=== PATIENT | male | born 1975 | race Caucasian/White ===

== ENCOUNTER 2018-09-22 09:23 | Emergency (ER) | payer MEDICAID ==
[~2018-09-22] VITALS: Ht 175.3 cm; Wt 97.1 kg
[2018-09-22 09:36] VITALS: BP 152/95
== END 2018-09-22 10:16 | disposition home or self-care (01) ==
LOC: ER 09:23
DX: L03.115 Cellulitis of right lower limb (principal); E11.9 Type 2 diabetes mellitus without complications; I10 Essential (primary) hypertension
CPT/HCPCS: 99282; 99283

== ENCOUNTER 2018-11-19 08:37 | Inpatient (IN) | payer MEDICAID ==
[~2018-11-19] VITALS: Ht 175.3 cm; Wt 95.3 kg
[2018-11-19] MEDS ORDERED: KETOROLAC 30MG/ML VIAL IV STA (10:13)
[2018-11-19] MEDS ORDERED: PIPERACILLIN/TAZ 3.375G PREMIX 50 ML IV ONE (10:15)
[2018-11-19] MEDS ORDERED: VANCOMYCIN 1 G PREMIX 200 ML IV ONE ×2 (10:15→14:00)
[2018-11-19] MEDS ORDERED: SODIUM CHLORIDE 0.9% 1000ML BAG (SEPSIS BOLUS) IV ONE (10:15)
[2018-11-19 10:46] LABS: BASOPHILS % 1.2 % (0.0-2.0); EOSINOPHILS % 1.1 % (0.0-5.0); HEMATOCRIT. 40.8 % (42.0-52.0); LYMPHOCYTES % 24.9 % (20.0-50.0); MEAN CORPUSCULAR VOLUME 87.4 fL (80.0-94.0); MEAN PLATELET VOLUME 8.8 fl (7.4-10.4); MONOCYTES % 9.9 % (2.0-8.0); NEUTROPHILS % 62.9 % (40.0-76.0); PLATELET 268 x1000/uL (130-400); RED BLOOD CELL COUNT 4.67 mill/uL (4.7-6.1); RED CELL DISTRIBUTION WIDTH 12.5 % (11.6-14.6)
[2018-11-19 10:48] LABS: CHLORIDE 101 mEq/L (98-107)
[2018-11-19 10:50] LABS: INR 1.1; PROTHROMBIN TIME 10.7 sec (9.1-11.1)
[2018-11-19 12:04] LABS: CLARITY URINE CLEAR (CLEAR); COLOR URINE YELLOW (YELLOW); KETONES URINE NEGATIVE (NEGATIVE); LEUKOCYTE ESTERASE URINE NEGATIVE (NEGATIVE); NITRITE URINE NEGATIVE (NEGATIVE); OCCULT BLOOD URINE NEGATIVE (NEGATIVE); PH URINE 5.5 (4.5-8.0); PROTEIN URINE 1+ (NEGATIVE); SPECIFIC GRAVITY URINE 1.025 (1.005-1.030); UROBILINOGEN URINE 0.2 E.U./dL (0.2-1.0)
[2018-11-19 12:54] LABS: *AMPHETAMINES SCREEN URINE PRESUMTIVE POSITIVE (NEGATIVE); *BARBITURATES SCREEN URINE NEGATIVE (NEGATIVE)
[2018-11-19 12:55] LABS: *BENZODIAZEPINES SCREEN URINE NEGATIVE (NEGATIVE); CANNABINOID URINE SCREEN NEGATIVE (NEGATIVE); METHADONE URINE SCREEN NEGATIVE (NEGATIVE); OPIATES URINE SCREEN NEGATIVE (NEGATIVE); PHENCYCLIDINE URINE SCREEN NEGATIVE (NEGATIVE)
[2018-11-19 12:57] LABS: *COCAINE SCREEN URINE NEGATIVE (NEGATIVE)
[2018-11-19 13:50] VITALS: BP 157/99
[2018-11-19] MEDS ORDERED: DOCUSATE SODIUM 100MG CAPSULE PO PRN (14:00)
[2018-11-19] MEDS ORDERED: HYDROCODONE/APAP 7.5/325MG 1 TAB TABLET PO PRN (14:00)
[2018-11-19] MEDS ORDERED: ONDANSETRON HCL 4MG/2ML INJ IV PRN (14:00)
[2018-11-19] MEDS ORDERED: IPRATROPIUM/ALBUTEROL 0.5-3(2.5)MG/3ML NEB INH PRN (14:00)
[2018-11-19] MEDS ORDERED: LORAZEPAM 2MG/ML CPJ IV PRN (14:00)
[2018-11-19] MEDS ORDERED: PIPERACILLIN/TAZ 2.25G PREMIX 50 ML IV SCH (14:00)
[2018-11-19] MEDS ORDERED: ACETAMINOPHEN 325MG TABLET PO PRN (14:00)
[2018-11-19] MEDS ORDERED: DIPHENHYDRAMINE 50MG/ML VIAL IV PRN (14:00)
[2018-11-19] MEDS ORDERED: MAGNESIUM/ALUMINUM HYDROXIDE/SIMETHICONE 30ML UDC PO PRN (14:00)
[2018-11-19] MEDS ORDERED: HYDRALAZINE 20MG/ML VIAL IV PRN (14:00)
[2018-11-19] MEDS ORDERED: DEXTROSE 50% WATER 50ML SYRINGE IV PRN (14:00)
[2018-11-19] MEDS ORDERED: GUAIFENESIN 200MG/10ML SUGAR FREE UDC PO PRN (14:00)
[2018-11-19] MEDS ORDERED: HYDROMORPHONE HCL/PF 2MG/ML CPJ IV PRN (14:00)
[2018-11-19] MEDS ORDERED: HYDRALAZINE 10 MG in SODIUM CHLORIDE 0.9% 49.5 ML IV PRN (14:15)
[2018-11-19 16:00] VITALS: BP 134/84
[2018-11-19 16:05] VITALS: BP 136/88
[2018-11-19] MEDS ORDERED: ASA5EC MT (16:16)
[2018-11-19] MEDS ORDERED: OMEP10CA4 MT (16:16)
[2018-11-19] MEDS ORDERED: METF-816 MT (16:16)
[2018-11-19] MEDS ORDERED: LISI-186 MT (16:16)
[2018-11-19] MEDS: VANCOMYCIN 1 G PREMIX 200 ML IV SCH (16:51)
[2018-11-19] MEDS: SODIUM CHLORIDE 0.9% INJ 3ML FLUSH IVF SCH ×2 (16:51→20:42)
[2018-11-19] MEDS: ENOXAPARIN 40MG/0.4ML SYR SUBCUT SCH (16:51)
[2018-11-19] MEDS: PIPERACILLIN/TAZ 3.375G PREMIX 50 ML IV SCH ×2 (16:51→20:41)
[2018-11-19] MEDS: BLOOD SUGAR DIAGNOSTIC STRIP TEST SCH ×2 (17:11→20:42)
[2018-11-19] MEDS: INSULIN LISPRO 100 UNITS/ML SUBCUT SCH ×2 (17:12→20:55)
[2018-11-19 20:00] VITALS: BP 135/85
[2018-11-20] VITALS: BP 140/89
[2018-11-20] MEDS: VANCOMYCIN 1 G PREMIX 200 ML IV SCH ×3 (00:57→18:01)
[2018-11-20 04:00] VITALS: BP 149/91
[2018-11-20] MEDS: PIPERACILLIN/TAZ 3.375G PREMIX 50 ML IV SCH ×4 (04:06→21:29)
[2018-11-20] MEDS: CLONIDINE 0.1MG TABLET PO PRN ×2 (04:31→11:48)
[2018-11-20 05:47] LABS: BASOPHILS % 1.1 % (0.0-2.0); EOSINOPHILS % 4.2 % (0.0-5.0); HEMOGLOBIN. 13.1 g/dL (14.0-18.0); LYMPHOCYTES % 38.7 % (20.0-50.0); MEAN CORPUSCULAR HEMOGLOBIN 30.2 pg (28.0-32.0); MEAN CORPUSCULAR VOLUME 87.6 fL (80.0-94.0); MEAN PLATELET VOLUME 8.7 fl (7.4-10.4); MONOCYTES % 11.3 % (2.0-8.0); NEUTROPHILS % 44.7 % (40.0-76.0); PLATELET 246 x1000/uL (130-400); RED BLOOD CELL COUNT 4.34 mill/uL (4.7-6.1); RED CELL DISTRIBUTION WIDTH 12.5 % (11.6-14.6)
[2018-11-20 05:50] LABS: CHLORIDE 101 mEq/L (98-107)
[2018-11-20 06:06] LABS: T4 FREE 0.96 ng/dL (0.76-1.46)
[2018-11-20] MEDS: BLOOD SUGAR DIAGNOSTIC STRIP TEST SCH ×4 (06:08→21:29)
[2018-11-20] MEDS: SODIUM CHLORIDE 0.9% INJ 3ML FLUSH IVF SCH ×3 (06:08→21:39)
[2018-11-20 08:00] VITALS: BP 128/91
[2018-11-20] MEDS: ENOXAPARIN 40MG/0.4ML SYR SUBCUT SCH (08:36)
[2018-11-20] MEDS: INSULIN LISPRO 100 UNITS/ML SUBCUT SCH ×4 (08:44→22:09)
[2018-11-20 12:00] VITALS: BP 154/99
[2018-11-20] MEDS: NEOMY SULF/BACITRAC ZN/POLY OINT 28GM TOP SCH (14:49)
[2018-11-20 16:00] VITALS: BP 131/87
[2018-11-20 20:00] VITALS: BP 167/117
[2018-11-21] VITALS (7 sets, daily range): BP systolic 122–141; BP diastolic 82–96
[2018-11-21] MEDS: VANCOMYCIN 1 G PREMIX 200 ML IV SCH ×2 (01:09→09:35)
[2018-11-21] MEDS: PIPERACILLIN/TAZ 3.375G PREMIX 50 ML IV SCH ×3 (02:42→14:47)
[2018-11-21] MEDS: SODIUM CHLORIDE 0.9% INJ 3ML FLUSH IVF SCH ×2 (06:25→13:02)
[2018-11-21] MEDS: BLOOD SUGAR DIAGNOSTIC STRIP TEST SCH ×2 (06:25→12:29)
[2018-11-21 07:31] LABS: BASOPHILS % 1.1 % (0.0-2.0); EOSINOPHILS % 2.8 % (0.0-5.0); HEMATOCRIT. 40.1 % (42.0-52.0); HEMOGLOBIN. 14.1 g/dL (14.0-18.0); LYMPHOCYTES % 28.5 % (20.0-50.0); MEAN CORPUSCULAR HEMOGLOBIN 30.4 pg (28.0-32.0); MEAN CORPUSCULAR VOLUME 86.7 fL (80.0-94.0); MEAN PLATELET VOLUME 8.3 fl (7.4-10.4); MONOCYTES % 11.3 % (2.0-8.0); NEUTROPHILS % 56.3 % (40.0-76.0); PLATELET 273 x1000/uL (130-400); RED BLOOD CELL COUNT 4.62 mill/uL (4.7-6.1); RED CELL DISTRIBUTION WIDTH 12.3 % (11.6-14.6)
[2018-11-21 07:51] LABS: CHLORIDE 100 mEq/L (98-107)
[2018-11-21] MEDS: ENOXAPARIN 40MG/0.4ML SYR SUBCUT SCH (08:45)
[2018-11-21] MEDS: NEOMY SULF/BACITRAC ZN/POLY OINT 28GM TOP SCH (08:49)
[2018-11-21] MEDS ORDERED: LISINOPRIL 5MG TABLET PO SCH (09:00)
[2018-11-21] MEDS: INSULIN LISPRO 100 UNITS/ML SUBCUT SCH ×2 (09:02→13:04)
== END 2018-11-21 17:13 | disposition home or self-care (01) | DRG 383 ==
LOC: ER 09:56 → EDBEDREQ 11:05 → ENRESERV 12:14 → ER 13:05 → 6EST 13:16
PROVIDERS: ADMIT Internal Medicine; ATTEND Internal Medicine
PROC: 0H9LXZZ Drainage of Left Lower Leg Skin, External Approach (ICD-10-PCS; principal; 2018-11-20)
DX: L03.116 Cellulitis of left lower limb (principal); E11.42 Type 2 diabetes mellitus with diabetic polyneuropathy; E46 Unspecified protein-calorie malnutrition; E11.65 Type 2 diabetes mellitus with hyperglycemia; I10 Essential (primary) hypertension; F19.10 Other psychoactive substance abuse, uncomplicated; E66.9 Obesity, unspecified; Z79.84 Long term (current) use of oral hypoglycemic drugs; Z68.31 Body mass index [BMI] 31.0-31.9, adult
CPT/HCPCS: 36415; 71045; 73590; 80048; 80202; 80305; 82962; 83605; 84145; 84439; 84443; 87070; 87077; 93005; 93971; 96365; 96366; 96368; 96375; 99285; J1650; J1815; J1885; J2543; J3370; J7030

== ENCOUNTER 2019-08-10 08:15 | Emergency (ER) | payer MEDICAID ==
[~2019-08-10] VITALS: Ht 177.8 cm; Wt 90.0 kg
[~2019-08-10 08:15] MED LIST: ASPI325T85 MT; LISI-186 MT; METF-816 MT; OMEP10CA5 MT
[2019-08-10] MEDS ORDERED: SODIUM CHLORIDE 0.9% 1,000 ML IV ONE (09:20)
[2019-08-10 09:29] LABS: BASOPHILS % 0.7 % (0.0-2.0); HEMATOCRIT. 45.5 % (42.0-52.0); HEMOGLOBIN. 15.4 g/dL (14.0-18.0); LYMPHOCYTES % 16.4 % (20.0-50.0); MEAN CORPUSCULAR HEMOGLOBIN 29.9 pg (28.0-32.0); MEAN CORPUSCULAR VOLUME 88.7 fL (80.0-94.0); MEAN PLATELET VOLUME 9.4 fl (7.4-10.4); MONOCYTES % 9.6 % (2.0-8.0); NEUTROPHILS % 72.3 % (40.0-76.0); PLATELET 179 x1000/uL (130-400); RED BLOOD CELL COUNT 5.13 mill/uL (4.7-6.1); RED CELL DISTRIBUTION WIDTH 13.3 % (11.6-14.6)
[2019-08-10] MEDS ORDERED: ONDANSETRON HCL 4MG/2ML INJ IV ONE (09:30)
[2019-08-10] MEDS ORDERED: CLINDAMYCIN 900 MG in DEXTROSE 5% WATER 50 ML IV ONE (09:30)
[2019-08-10] MEDS ORDERED: MORPHINE SULFATE 4 MG/ML CPJ (NOT FOR IM USE) IV ONE (09:30)
[2019-08-10 09:31] LABS: CHLORIDE 98 mEq/L (98-107)
[2019-08-10] MEDS ORDERED: INSULIN REGULAR (HUMULIN R) 300UNITS/3ML SUBCUT NR (12:30)
[2019-08-10 13:31] VITALS: BP 154/91
== END 2019-08-10 13:33 | disposition home or self-care (01) ==
LOC: ER 08:15
DX: K13.0 Diseases of lips (principal); E11.65 Type 2 diabetes mellitus with hyperglycemia; I10 Essential (primary) hypertension; R51 Headache; Z79.82 Long term (current) use of aspirin; Z79.899 Other long term (current) drug therapy
CPT/HCPCS: 36415; 70450; 80053; 82962; 85025; 96365; 96372; 96375; 99284; J1815; J2270; J2405; J3490; J7030; J7060; Z7610

== ENCOUNTER 2019-12-02 09:50 | Emergency (ER) | payer MEDICAID ==
[~2019-12-02] VITALS: Ht 175.3 cm; Wt 99.0 kg
[2019-12-02] MEDS ORDERED: CEPHALEXIN 250MG CAPSULE PO ONE (10:45)
[2019-12-02] MEDS ORDERED: SULFAMETHOXAZOLE/TRIMETHOPRIM 800/160MG TABLET PO ONE (10:45)
[2019-12-02] MEDS ORDERED: IBUPROFEN 600MG TABLET PO ONE (10:45)
[2019-12-02 12:14] VITALS: BP 136/78
== END 2019-12-02 12:15 | disposition home or self-care (01) ==
LOC: ER 09:50
DX: L03.811 Cellulitis of head [any part, except face] (principal); E11.9 Type 2 diabetes mellitus without complications; I10 Essential (primary) hypertension; Z79.84 Long term (current) use of oral hypoglycemic drugs; Z79.82 Long term (current) use of aspirin
CPT/HCPCS: 99284

== ENCOUNTER 2021-12-06 12:53 | Emergency (ER) | payer MEDICAID ==
[~2021-12-06] VITALS: Ht 175.3 cm; Wt 91.0 kg
[~2021-12-06 12:53] MED LIST changes: +ASPI-867 MT; -ASPI325T85 MT; -METF-816 MT; +METF-874 MT
[2021-12-06 13:03] VITALS: BP 153/93
[2021-12-06] MEDS ORDERED: SODIUM CHLORIDE 0.9% 1,000 ML IV ONE (13:15)
[2021-12-06 15:21] LABS: CHLORIDE 97 mEq/L (98-107)
[2021-12-06 15:32] LABS: BETA HYDROXYBUTYRATE 0.1 mMol/L (0.0-0.3)
[2021-12-06 15:43] LABS: HEMATOCRIT. 48.2 % (42.0-52.0); HEMOGLOBIN. 16.6 g/dL (14.0-18.0); LYMPHOCYTES % 12.3 % (20.0-50.0); MEAN CORPUSCULAR HEMOGLOBIN 30.3 pg (28.0-32.0); MEAN CORPUSCULAR VOLUME 88.2 fL (80.0-94.0); MEAN PLATELET VOLUME 10.4 fl (7.4-10.4); MONOCYTES % 10.3 % (2.0-8.0); NEUTROPHILS % 75.4 % (40.0-76.0); PLATELET 210 x1000/uL (130-400); RED BLOOD CELL COUNT 5.46 mill/uL (4.7-6.1); RED CELL DISTRIBUTION WIDTH 12.4 % (11.6-14.6)
== END 2021-12-06 17:43 | disposition left against medical advice (07) ==
LOC: ER 12:53
DX: M79.89 Other specified soft tissue disorders (principal); Z53.21 Procedure and treatment not carried out due to patient leaving prior to being seen by health care provider
CPT/HCPCS: 36415; 71045; 80053; 82010; 82962; 83605; 85025; J7030; 99284

== ENCOUNTER 2022-06-30 21:01 | Emergency (ER) | payer MEDICAID ==
[~2022-06-30] VITALS: Ht 172.7 cm; Wt 98.2 kg
[2022-07-01] MEDS ORDERED: CEFTRIAXONE SODIUM 500 MG/VIAL IM ONE (00:30)
[2022-07-01] MEDS ORDERED: CEPH500T MT (01:04)
[2022-07-01] MEDS ORDERED: HYDR-4001 MT (01:04)
[2022-07-01] MEDS ORDERED: SULF1TAB48 MT (01:04)
[2022-07-01 01:23] VITALS: BP 118/62
== END 2022-07-01 01:15 | disposition home or self-care (01) ==
LOC: ER 21:01
DX: L03.221 Cellulitis of neck (principal); E11.9 Type 2 diabetes mellitus without complications; I10 Essential (primary) hypertension
CPT/HCPCS: 96372; 99283; J0696

== ENCOUNTER 2023-02-10 15:20 | Emergency (ER) | payer MEDICAID ==
[~2023-02-10] VITALS: Ht 175.3 cm; Wt 100.0 kg
[~2023-02-10 15:20] MED LIST changes: +CEPH500T MT; +HYDR-4001 MT; +SULF1TAB48 MT
[2023-02-10 15:24] VITALS: BP 180/112
[2023-02-10 22:07] LABS: BASOPHILS % 1.3 % (0.0-2.0); EOSINOPHILS % 4.1 % (0.0-5.0); HEMATOCRIT. 43.2 % (42.0-52.0); HEMOGLOBIN. 15.2 g/dL (14.0-18.0); LYMPHOCYTES % 36.1 % (20.0-50.0); MEAN CORPUSCULAR HEMOGLOBIN 30.4 pg (28.0-32.0); MEAN CORPUSCULAR VOLUME 86.6 fL (80.0-94.0); MEAN PLATELET VOLUME 9.5 fl (7.4-10.4); NEUTROPHILS % 47.5 % (40.0-76.0); PLATELET 182 x1000/uL (130-400); RED BLOOD CELL COUNT 4.99 mill/uL (4.7-6.1); RED CELL DISTRIBUTION WIDTH 12.7 % (11.6-14.6)
[2023-02-10 22:12] LABS: CHLORIDE 103 mEq/L (98-107)
[2023-02-10 22:12] LABS: CLARITY URINE CLEAR (CLEAR); COLOR URINE YELLOW (YELLOW); KETONES URINE NEGATIVE (NEGATIVE); LEUKOCYTE ESTERASE URINE NEGATIVE (NEGATIVE); NITRITE URINE NEGATIVE (NEGATIVE); OCCULT BLOOD URINE 1+ (NEGATIVE); PH URINE 5.5 (4.5-8.0); PROTEIN URINE 2+ (NEGATIVE); SPECIFIC GRAVITY URINE 1.035 (1.005-1.030); UROBILINOGEN URINE 0.2 E.U./dL (0.2-1.0)
[2023-02-10 22:21] LABS: BETA HYDROXYBUTYRATE 0.1 mMol/L (0.0-0.3)
[2023-02-10 22:24] LABS: *AMPHETAMINES SCREEN URINE NEGATIVE (NEGATIVE); *BARBITURATES SCREEN URINE NEGATIVE (NEGATIVE); *BENZODIAZEPINES SCREEN URINE NEGATIVE (NEGATIVE); *COCAINE SCREEN URINE NEGATIVE (NEGATIVE); CANNABINOID URINE SCREEN NEGATIVE (NEGATIVE); METHADONE URINE SCREEN NEGATIVE (NEGATIVE); OPIATES URINE SCREEN NEGATIVE (NEGATIVE); PHENCYCLIDINE URINE SCREEN NEGATIVE (NEGATIVE)
[2023-02-10] MEDS ORDERED: NITR-87 MT (22:38)
== END 2023-02-10 22:56 | disposition home or self-care (01) ==
LOC: ER 15:20
DX: E11.65 Type 2 diabetes mellitus with hyperglycemia (principal); I10 Essential (primary) hypertension; N39.0 Urinary tract infection, site not specified; Z91.14 Patient's other noncompliance with medication regimen
CPT/HCPCS: 36415; 80053; 80305; 81003; 82010; 82962; 85025; 99283

== ENCOUNTER 2024-11-25 19:42 | Emergency (ER) | payer MEDICAID ==
[~2024-11-25] VITALS: Ht 170.2 cm; Wt 111.0 kg
[~2024-11-25 19:42] MED LIST changes: +METF-1150 MT; -METF-874 MT; +NITR-87 MT
[2024-11-25 19:52] VITALS: O2SAT 99
[2024-11-25] MEDS ORDERED: KETOROLAC 30MG/ML VIAL IM ONE (21:00)
[2024-11-25 21:18] LABS: CLARITY URINE CLEAR (CLEAR); COLOR URINE YELLOW (YELLOW); GLUCOSE URINE 3+ (NEGATIVE); KETONES URINE TRACE (NEGATIVE); LEUKOCYTE ESTERASE URINE NEGATIVE (NEGATIVE); NITRITE URINE NEGATIVE (NEGATIVE); OCCULT BLOOD URINE 2+ (NEGATIVE); PROTEIN URINE 3+ (NEGATIVE); SPECIFIC GRAVITY URINE 1.025 (1.005-1.030)
[2024-11-25 21:37] LABS: BACTERIA URINE NONE SEEN; HYALINE CASTS URINE 0-5 /lpf; RBC URINE 0-2 /hpf (0-2); SQUAMOUS EPITHELIAL CELL URINE RARE /lpf (RARE/1+); WBC URINE 0-2 /hpf (0-2)
[2024-11-25 22:13] VITALS: TEMP 98.2
[2024-11-25] MEDS: CYCLOBENZAPRINE 10MG TABLET PO ONE (22:13)
[2024-11-25] MEDS: ACETAMINOPHEN 325MG TABLET PO ONE (22:13)
[2024-11-25] MEDS: LIDOCAINE 5% PATCH TOP SCH (22:13)
[2024-11-25] MEDS: LABETALOL 5MG/ML 4ML INJ IV ONE (22:15)
[2024-11-25 23:32] LABS: BASOPHILS % 1.4 % (0.0-2.0); EOSINOPHILS % 4.2 % (0.0-5.0); HEMATOCRIT. 33.3 % (42.0-52.0); HEMOGLOBIN. 11.8 g/dL (14.0-18.0); MEAN CORPUSCULAR HEMOGLOBIN 30.2 pg (28.0-32.0); MEAN CORPUSCULAR HGB CONC 35.6 g/dL (31.0-37.0); MEAN CORPUSCULAR VOLUME 84.8 fL (80.0-94.0); MEAN PLATELET VOLUME 8.8 fl (7.4-10.4); MONOCYTES % 9.9 % (2.0-8.0); NEUTROPHILS % 57.5 % (40.0-76.0); PLATELET 195 x1000/uL (130-400); RED BLOOD CELL COUNT 3.92 mill/uL (4.7-6.1); WHITE BLOOD COUNT 7.6 x1000/uL (4.5-11.0)
[2024-11-26 00:03] LABS: PROTHROMBIN TIME 10.7 sec (9.6-11.0)
[2024-11-26] MEDS: LABETALOL 5MG/ML 4ML INJ IV NR (01:38)
[2024-11-26] MEDS ORDERED: LIDO700A30 TP (03:29)
[2024-11-26] MEDS ORDERED: IBUP-2029 MT (03:29)
[2024-11-26] MEDS ORDERED: METH-653 MT (03:29)
[2024-11-26] MEDS ORDERED: SODIUM CHLORIDE 0.9% 1,000 ML IV ONE (03:30)
[2024-11-26 04:08] VITALS: BP 148/89; PULSE 89; RESP 16; O2SAT 98
[2024-11-26] MEDS ORDERED: IOHEXOL-350 100 ML BOTTLE ONE (04:14)
== END 2024-11-26 04:12 | disposition home or self-care (01) ==
LOC: ER 19:42 → EDBEDREQ 11-26 02:05 → EDBEDREQTM 11-26 02:05 → ER 11-26 04:12
DX: S33.5XXA Sprain of ligaments of lumbar spine, initial encounter (principal); I10 Essential (primary) hypertension; E11.9 Type 2 diabetes mellitus without complications; E78.5 Hyperlipidemia, unspecified; Z79.899 Other long term (current) drug therapy; X58.XXXA Exposure to other specified factors, initial encounter; Y93.89 Activity, other specified; Y92.89 Other specified places as the place of occurrence of the external cause; Y99.8 Other external cause status
CPT/HCPCS: 81003; 83880; 85025; 85610; 36415; 93005; 99285; 74174; 96374; Z7610; Q9967; J3490; J7030; 80048; 84484; A4606; J1885

== ENCOUNTER 2025-04-29 11:16 | Emergency (ER) | payer MEDICAID ==
[~2025-04-29] VITALS: Ht 175.3 cm; Wt 109.0 kg
[~2025-04-29 11:16] MED LIST changes: +IBUP-2029 MT; +LIDO700A30 TP; +METH-653 MT
[2025-04-29 11:30] VITALS: O2SAT 99
[2025-04-29 11:51] LABS: BASOPHILS % 1.4 % (0.0-2.0); EOSINOPHILS % 4.7 % (0.0-5.0); HEMATOCRIT. 34.6 % (42.0-52.0); HEMOGLOBIN. 12.2 g/dL (14.0-18.0); LYMPHOCYTES % 27.6 % (20.0-50.0); MEAN CORPUSCULAR HEMOGLOBIN 29.6 pg (28.0-32.0); MEAN CORPUSCULAR HGB CONC 35.3 g/dL (31.0-37.0); MEAN PLATELET VOLUME 8.6 fl (7.4-10.4); MONOCYTES % 9.2 % (2.0-8.0); NEUTROPHILS % 57.1 % (40.0-76.0); PLATELET 203 x1000/uL (130-400); RED BLOOD CELL COUNT 4.11 mill/uL (4.7-6.1); RED CELL DISTRIBUTION WIDTH 13.5 % (11.6-14.6); WHITE BLOOD COUNT 5.2 x1000/uL (4.5-11.0)
[2025-04-29 12:01] LABS: POTASSIUM 4.6 mEq/L (3.5-5.1)
[2025-04-29 12:07] LABS: CREATININE 1.6 mg/dL (0.6-1.3)
[2025-04-29 15:42] VITALS: BP 161/90; PULSE 61; RESP 18; TEMP 36.7; O2SAT 98
== END 2025-04-29 15:49 | disposition home or self-care (01) ==
LOC: ER 11:16
DX: E87.5 Hyperkalemia (principal); I10 Essential (primary) hypertension; E11.9 Type 2 diabetes mellitus without complications; Z79.899 Other long term (current) drug therapy
CPT/HCPCS: 36415; 80048; 85025; 93005; 99284